=== PATIENT | male | born 1995 | race Caucasian/White ===

== ENCOUNTER 2017-10-29 15:30 | Outpatient (RCR) | payer OTHER ==
[2017-08-24 17:19] VITALS: BP 121/91
[2017-08-24 17:25] LABS: PLATELET COUNT, AUTOMATED 227 K/uL (150-450)
[2017-08-31 09:15] VITALS: BP 141/78
--- NOTE | 2017-09-02 07:38 | SCHUSTER ONCOLOGY NOTE ---
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 HISTORY OF PRESENT ILLNESS The patient returns. Please see his oncology history below. He continues to do quite well. He does notice an irregularity on the right flank, and on examination, I think this is a cyst in his skin. His AFP remains normal and was elevated prior to surgery. He also had an HCG of 22, which continues to be undetectable. I feel that this is most likely a cyst, and we will watch this. It has been present for less than a week. Overall he is doing quite well. His anxiety is improved. No shortness of breath, cough, respiratory symptoms of any kind. No fevers, chills, weight loss. He is looking forward to a spring break trip to [place], [place]. ONCOLOGIC HISTORY Mr. Vee noticed a small swelling and bump in the right testis in July 2016. He was treated with a course of Bactrim without improvement and his doctor promptly sent him for an ultrasound which showed a lesion with three intratesticular masses on the right, the largest measuring 1.7 cm. He had an entire right orchiectomy under the care of Dr. Narayanan of Urology here in [place]. Pathology showed a mixed seminoma, nonseminoma with embryonal yolk sac and seminoma components. Final pathology showed a mixed germ cell tumor consisting of 67% embryonal and 33% seminoma with less than 1% yolk sac component. The tumor in greatest dimension at that time was 1.0 cm in final pathology. Fortunately, it was limited to the testis with no lymphovascular invasion. His presurgery labs showed an AFP of 12, which improved to 4. He had an HCG of 22, which improved to undetectable within two weeks of his surgery. Surgery was performed on September 11, 2016, proven to be stage IA. PET scan was done due to a borderline lymph node right next to his incision site, and this appeared to be reactive from the surgery. His LDH was normal at the time of diagnosis. PAST MEDICAL/SURGICAL HISTORY Testicular cancer, stage IA. 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 [employer], born in [place]. His family currently lives in [place]. He is presented by himself again today. FAMILY HISTORY Noncontributory. REVIEW OF SYSTEMS CONSTITUTIONAL: No fevers, chills or weight change. HEENT: No headache or vision changes. CARDIOVASCULAR: No chest pain, dyspnea on exertion or edema. RESPIRATORY: No shortness of breath, wheeze or cough. GI: No nausea or vomiting. : No dysuria or hematuria, testicular issues. MUSCULOSKELETAL: No weakness or joint pain. PSYCHIATRIC: No anxiety or depression. ENDOCRINE: No heat or cold intolerance. SKIN: The patient has a subcutaneous irregularity, which I believe is most likely a cyst in the dermis. LYMPHATIC: No concerning lumps or bumps. The remainder of 14-point review of systems otherwise negative except as noted above in the HPI. PHYSICAL EXAMINATION VITAL SIGNS: Blood pressure 141/78, pulse 66, respiratory rate 16, temperature 97.1 Fahrenheit, oxygen saturation 98% on room air. Weight 94.6 kg. Pain 0/ 10. Fatigue 0/10. GENERAL: Stable condition, resting comfortably in the chair. SKIN: He has a likely cyst on the right flank, no discoloration over the skin. I believe it is in the dermis based on the exam. With his normal labs, I do not believe this is related to testicular cancer. LYMPHATIC: No appreciable cervical, supraclavicular or axillary adenopathy. Remainder of physical exam otherwise unremarkable. IMPRESSION AND PLAN The patient is a pleasant 21-year-old gentleman with the following: Testicular cancer, nonseminoma with mixed embryonal and seminoma components. Stage IA. Observation was our recommendation, but we are getting labs every three months and scans every six months for the first two years. He had mild elevations of beta HCG and AFP at diagnosis that are now both normal. They continue to be normal. I answered all of his questions today. Billing Return visit, level 3. Total time 20 minutes, counseling time 15 minutes. JOON
[~2017-10-29 15:30] MED LIST changes: +DEXTROSE 5%(*) 100 ML BAG 100 ML IVPB PRN; -IOPAMIDOL 76% 75 ML INFUS BTL 75 ML ONE; +LIDOCAINE/SOD BICARB 8.4% SYR ID PRN; +NS(*) 0.9% 100 ML BAG 100 ML IVPB PRN
[2017-10-29 15:32] VITALS: BP 140/92
[2017-10-29 15:50] LABS: PLATELET COUNT, AUTOMATED 210 K/uL (150-450)
== END 2017-11-22 ==
LOC: SPU 15:30
PROVIDERS: ATTEND Internal Medicine
DX: C62.90 Malignant neoplasm of unspecified testis, unspecified whether descended or undescended (principal)
CPT/HCPCS: 36415; 82040; 82105; 82247; 82310; 82374; 82435; 82565; 82947; 84075; 84132; 84155; 84295; 84450; 84460; 84520; 84702; 85025; 99212

== ENCOUNTER → 2017-10-29 | Outpatient (CLI) | payer OTHER ==
[~2017-10-29] MED LIST: DOCU-416 PO; HYDR-317 PO; IBUP600T22 PO; IOPAMIDOL 76% 75 ML INFUS BTL 75 ML ONE
--- NOTE | 2017-10-29 16:35 | RADIOLOGY IMAGING REPORT ---
FACILITY: [facility] [place] PATIENT NAME: Aries Vee : 1995 MR: [id number] V: [id number] EXAM DATE: ORDERING PHYSICIAN: MIRZA CARMICHAEL TECHNOLOGIST: Location: [facility] Patient: Aries Vee : 1995 Visit/Account:[id number] Date of Sevice: 10/29/2017 CHEST/AB/PELV W/CONTRAST HISTORY: Testicular cancer ADDITIONAL HISTORY: None. TECHNIQUE: Following administration of IV contrast axial images acquired through the chest abdomen a nd pelvis during the portal venous phase. Coronal and sagittal reformatting was also performed. Dose Lowering Technique One of the following dose optimization techniques was utilized in the performance of this exam: Autom ated exposure control; adjustment of the mA and/or kV according to the patient's size; or use of an i terative reconstruction technique. Specific details can be referenced in the facility's radiology C T exam operational policy. CONTRAST: 75 mL Isovue-370 COMPARISON: May 27, 2017 FINDINGS: CHEST: Lungs/Pleura: Negative. Mediastinum/lymph nodes: Negative. Heart/vessels: Negative. Bones/soft tissues: No aggressive appearing bone lesions ABDOMEN AND PELVIS: Hepatobiliary: Negative. Spleen: Spleen is enlarged measuring 15.3 cm in length although appears stable Pancreas: Negative. Adrenals: Negative. Kidneys ureters and bladder : Negative. Genitalia: Postsurgical changes from a prior orchiectomy GI: Negative. Vessels/spaces/nodes: Multiple small lymph nodes in the right groin appears slightly less prominent. The largest now measuring 1.2 x 0.6 cm as opposed to 1.4 x 0.7 cm. Small lymph nodes left groin ar e unchanged Bones/soft tissues: Is a levoconvex scoliosis of the lumbar spine. Schmorl's nodes are noted in the thoracolumbar spine Additional findings: None pertinent. IMPRESSION: No CT evidence of metastatic disease in the chest abdomen or pelvis Spleen is mildly enlarged but unchanged Report Dictated By: Chuyita Astudillo MD at 10/29/2017 4:23 PM Report E-Signed By: Chuyita Astudillo MD at 10/29/2017 4:31 PM WSN:[email or web address]
== END ==
LOC: CT 14:35
PROVIDERS: ATTEND Internal Medicine
DX: R16.1 Splenomegaly, not elsewhere classified (principal)
CPT/HCPCS: 71260; 74177; Q9967

== ENCOUNTER 2018-05-03 08:00 | Outpatient (RCR) | payer OTHER ==
[2018-04-26 09:22] VITALS: BP 143/97
[2018-04-26 09:51] LABS: PLATELET COUNT, AUTOMATED 222 K/uL (150-450)
--- NOTE | 2018-04-26 12:00 | RADIOLOGY IMAGING REPORT ---
FACILITY: [facility] [place] PATIENT NAME: Aries Vee : 1995 MR: [id number] V: [id number] EXAM DATE: ORDERING PHYSICIAN: MIRZA CARMICHAEL TECHNOLOGIST: Location: [facility] [place] Patient: Aries Vee : 1995 Visit/Account:[id number] Date of Sevice: 04/26/2018 CHEST/AB/PELV W/CONTRAST HISTORY: Testicular cancer ADDITIONAL HISTORY: None. TECHNIQUE: Following administration of IV contrast axial images acquired through the chest abdomen a nd pelvis during the portal venous phase. Coronal and sagittal reformatting was also performed.Dose Lowering Technique One of the following dose optimization techniques was utilized in the performance of this exam: Autom ated exposure control; adjustment of the mA and/or kV according to the patient's size; or use of an i terative reconstruction technique. Specific details can be referenced in the facility's radiology C T exam operational policy. CONTRAST: 75 mL Isovue-370 COMPARISON: October 29, 2017 FINDINGS: CHEST: Lungs/Pleura: Negative. Mediastinum/lymph nodes: Negative. Heart/vessels: Negative. Bones/soft tissues: There are Schmorl's nodes in the thoracic spine and upper lumbar spine ABDOMEN AND PELVIS: Hepatobiliary: Negative. Spleen: Spleen is enlarged measuring 15.3 cm in length although appears stable . There is an acces nati splenule Pancreas: Negative. Adrenals: Negative. Kidneys ureters and bladder : Negative. Genitalia: Postsurgical changes from a prior orchiectomy GI: Negative. Vessels/spaces/nodes: No pathologically enlarged lymph nodes are identified Bones/soft tissues: There is a gentle levoconvex scoliosis of the lumbar spine Additional findings: None pertinent. IMPRESSION: Spleen is enlarged although appears stable No evidence of metastatic disease at this time Report Dictated By: Chuyita Astudillo MD at 04/26/2018 11:36 AM Report E-Signed By: Chuyita Astudillo MD at 04/26/2018 11:55 AM WSN:[id number]
[~2018-05-03 08:00] MED LIST changes: -DEXTROSE 5%(*) 100 ML BAG 100 ML IVPB PRN; +IOPAMIDOL 76% 75 ML INFUS BTL 75 ML ONE; -LIDOCAINE/SOD BICARB 8.4% SYR ID PRN; -NS(*) 0.9% 100 ML BAG 100 ML IVPB PRN
[2018-05-03 08:07] VITALS: BP 142/82
--- NOTE | 2018-05-03 14:38 | SCHUSTER ONCOLOGY NOTE ---
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 HISTORY OF PRESENT ILLNESS Sukhjinder returns. Please see his oncology history below for more details. He continues to do exceptionally well. He is finishing his senior year in [employer] and plans to move back to [place] next year. His AFT and HCG remain normal. He had an HCG of 22 at diagnosis, which continues to be low now. No new issues. No concerning lumps or bumps. No sexual dysfunction. No shortness of breath, cough, lumps or bumps, weight loss or other concerning symptoms. ONCOLOGIC HISTORY Mr. Vee noticed a small swelling and bump in the right testis in July 2016. He was treated with a course of Bactrim without improvement and his doctor promptly sent him for an ultrasound which showed a lesion with three intratesticular masses on the right, the largest measuring 1.7 cm. He had an entire right orchiectomy under the care of Dr. Narayanan of Urology here in [place]. Pathology showed a mixed seminoma, nonseminoma with embryonal yolk sac and seminoma components. Final pathology showed a mixed germ cell tumor consisting of 67% embryonal and 33% seminoma with less than 1% yolk sac component. The tumor in greatest dimension at that time was 1.0 cm in final pathology. Fortunately, it was limited to the testis with no lymphovascular invasion. His presurgery labs showed an AFP of 12, which improved to 4. He had an HCG of 22, which improved to undetectable within two weeks of his surgery. Surgery was performed on September 11, 2016, proven to be stage IA. PET scan was done due to a borderline lymph node right next to his incision site, and this appeared to be reactive from the surgery. His LDH was normal at the time of diagnosis. PAST MEDICAL/SURGICAL HISTORY Testicular cancer, stage IA. SOCIAL HISTORY The patient is a sophomore here at the [employer] [facility], born in [place]. His family currently lives in [place]. He is presented by himself again today. FAMILY HISTORY Noncontributory. REVIEW OF SYSTEMS CONSTITUTIONAL: No fevers, chills or weight change. HEENT: No headache or vision changes. CARDIOVASCULAR: No chest pain, dyspnea on exertion or edema. RESPIRATORY: No shortness of breath, wheeze or cough. GI: No nausea or vomiting. : No dysuria or hematuria, testicular concerns. MUSCULOSKELETAL: No weakness or joint pain. PSYCHIATRIC: No anxiety or depression. ENDOCRINE: No heat or cold intolerance. SKIN: No issues. LYMPHATIC: No concerning lumps or bumps. The remainder of 14-point review of systems otherwise negative. PHYSICAL EXAMINATION VITAL SIGNS: Blood pressure 142/82, pulse 74, respiratory rate 16, temperature 97.1 Fahrenheit, oxygen saturation 96% on room air. Weight 96.8 kg. Pain 0/10. Fatigue 0/10. GENERAL: Stable condition, resting comfortably in the chair. HEENT: Normocephalic/atraumatic. LYMPHATIC: No appreciable cervical, supraclavicular or axillary adenopathy. CARDIOVASCULAR: Regular rate and rhythm. No murmur, rub or gallop. LUNGS: Clear. ABDOMEN: Soft, nontender. No organomegaly, tenderness or masses. : Testicular exam deferred today. The remainder of physical exam otherwise unremarkable. IMPRESSION/REPORT/PLAN Sukhjinder is a very pleasant 21-year-old gentleman with the following: Testicular cancer - nonseminoma with mixed embryonal and seminoma components, stage IA. Observation was recommended and we are getting labs every six months with scans every six months at this time. In the spring of 2018, we can transition to annual exams with scans for three years. I answered all of his questions today. He is doing very well. He may move back to [place] after graduation in the spring. Billing Return visit, level 3. Total time 20 minutes, counseling time 15 minutes. JOON
[2018-05-06] MEDS ORDERED: DEXTROSE 5%(*) 100 ML BAG 100 ML IVPB PRN (15:25)
[2018-05-06] MEDS ORDERED: NS(*) 0.9% 100 ML BAG 100 ML IVPB PRN (15:25)
[2018-05-06] MEDS ORDERED: LIDOCAINE/SOD BICARB 8.4% SYR ID PRN (15:25)
== END 2018-05-26 11:54 | disposition home or self-care (01) ==
LOC: ONC 08:00
PROVIDERS: ATTEND Internal Medicine
DX: C62.90 Malignant neoplasm of unspecified testis, unspecified whether descended or undescended (principal)
CPT/HCPCS: 71260; 74177; 82105; 84702; 85025; 99212; Q9967; 82040; 82247; 82310; 82374; 82435; 82565; 82947; 84075; 84132; 84155; 84295; 84450; 84460; 84520

== ENCOUNTER 2018-08-11 10:00 | Outpatient (RCR) | payer OTHER ==
[2018-08-05 14:05] VITALS: BP 161/98
[2018-08-05 14:20] LABS: PLATELET COUNT, AUTOMATED 207 K/uL (150-450)
[~2018-08-11 10:00] MED LIST changes: -IOPAMIDOL 76% 75 ML INFUS BTL 75 ML ONE
[2018-08-11 10:33] VITALS: BP 153/87
[2018-08-11] MEDS ORDERED: DEXTROSE 5%(*) 100 ML BAG 100 ML IVPB PRN (10:40)
[2018-08-11] MEDS ORDERED: LIDOCAINE/SOD BICARB 8.4% SYR ID PRN (10:40)
[2018-08-11] MEDS ORDERED: NS(*) 0.9% 100 ML BAG 100 ML IVPB PRN (10:40)
--- NOTE | 2018-08-11 16:23 | RADIOLOGY IMAGING REPORT ---
FACILITY: [facility] [place] PATIENT NAME: Aries Vee : 1995 MR: [id number] V: [id number] EXAM DATE: ORDERING PHYSICIAN: MIRZA CARMICHAEL TECHNOLOGIST: Location: [facility] Patient: Aries Vee : 1995 Visit/Account:[id number] Date of Sevice: 08/11/2018 CT CHEST ABDOMEN PELVIS W & W/O HISTORY: Restaging testicular cancer TECHNIQUE: CT chest, abdomen and pelvis with and without intravenous contrast. Contiguous helical im ages was performed from the lung apices to the symphysis pubis. One of the following dose optimization techniques was utilized in the performance of this exam: Autom ated exposure control; adjustment of the mA and/or kV according to the patient's size; or use of an i terative reconstruction technique. Specific details can be referenced in the facility's radiology C T exam operational policy. CONTRAST: 75 cc of Isovue-300 COMPARISON: CT scan 04/26/2018 as well as multiple priors FINDINGS: CHEST: Heart/vessels: Negative. Mediastinum: Negative. Lymph nodes: Negative. Lungs/pleura: Negative. Bones/soft tissues: Negative. ABDOMEN/PELVIS: Hepatobiliary: Negative. Spleen: Mild enlarged measures 14.7 cm in length and is stable from prior exams. Adrenals: Negative. Kidneys/: Postoperative changes are noted from right orchiectomy. No definitive recurrent or metas tatic disease. Pancreas: Negative. GI: Negative. Vessels/spaces/nodes: Shotty retroperitoneal lymph nodes are stable. No evidence for metastatic retr ocardial adenopathy. Small mesenteric lymph nodes are stable. Bones/soft tissues: Small subcutaneous nodule along the right flank image 145 is stable. Some infilt ration of subcutaneous tissues along the ventral abdominal wall are also noted likely inflammatory. 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 IMPRESSION: 1. Stable postoperative changes are noted from right orchiectomy. No definite recurrent or metastati c disease. Report Dictated By: Roman Davis MD at 08/11/2018 4:08 PM Report E-Signed By: Roman Davis MD at 08/11/2018 4:19 PM WSN:[id number]
--- NOTE | 2018-08-17 23:27 | ONCOLOGY FOLLOW UP NOTE ---
EVENT DATE: August 17, 2018 CHIEF COMPLAINT/REASON FOR VISIT Mr. Vee is a very pleasant 22-year-old gentleman and senior at the [employer] with a stage I testicular cancer (non-seminoma with mixed embryonal and seminoma components). HISTORY OF PRESENT ILLNESS Sukhjinder shane. Please see Oncology History below for more details. He continues to do exceptionally well. 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 His AFP and hCG remain normal. He had initial hCG of 22, which continues to be normal now. He noted a suprapubic nodule of approximately 1 cm in size that appears to be in the lower layers of the skin approximately two weeks ago. This led to moving up his imaging and labs. Unfortunately, there is no sign of relapse at this time. This lesion has been unchanged in the past few weeks, and we are currently suspecting that it is a cyst, and we will be watching it clinically as it is easily palpable. We discussed consideration for biopsy, but they did not feel that this was warranted at this time, and I agree with this. ONCOLOGIC HISTORY Mr. Vee noticed a small swelling and bump in the right testis in July 2016. He was treated with a course of Bactrim without improvement, and his doctor promptly sent him for an ultrasound which showed a lesion with three intratesticular masses on the right, the largest measuring 1.7 cm. He had an entire right orchiectomy under the care of Dr. Narayanan of Urology here in [place]. Pathology showed a mixed seminoma, nonseminoma with embryonal yolk sac and seminoma components. Final pathology showed a mixed germ cell tumor consisting of 67% embryonal and 33% seminoma with less than 1% yolk sac component. The tumor in greatest dimension at that time was 1.0 cm in final pathology. Fortunately, it was limited to the testis with no lymphovascular invasion. His presurgery labs showed an AFP of 12, which improved to 4. He had an hCG of 22, which improved to undetectable within two weeks of his surgery. Surgery was performed on September 11, 2016, proven to be stage IA. PET scan was done due to a borderline lymph node right next to his incision site, and this appeared to be reactive from the surgery. His LDH was normal at the time of diagnosis. PAST MEDICAL/SURGICAL HISTORY Testicular cancer, stage IA. 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 His family currently lives in [place]. He is presented by himself again today. FAMILY HISTORY Noncontributory. REVIEW OF SYSTEMS CONSTITUTIONAL: No fevers, chills, or weight change. HEENT: No headache or vision changes. CARDIOVASCULAR: No chest pain, dyspnea on exertion, or edema. RESPIRATORY: No shortness of breath, wheeze, or cough. GASTROINTESTINAL: No nausea or vomiting. GENITOURINARY: No dysuria or hematuria, testicular concerns. MUSCULOSKELETAL: No weakness or joint pain. PSYCHIATRIC: No anxiety or depression. ENDOCRINE: No heat or cold intolerance. SKIN: No issues. LYMPHATIC: No concerning lumps or bumps. The remainder of 14-point review of systems otherwise negative. PHYSICAL EXAMINATION VITAL SIGNS: Blood pressure 148/92, pulse 62, respiratory rate 16, temperature 97.0 Fahrenheit, oxygen saturation 98% on room air. Weight 100.5 kg, which is an increase of approximately 10 pounds in the last few months. Pain 0/10. Fatigue 0/10. GENERAL: Stable condition, resting comfortably in the chair. HEENT: Normocephalic, atraumatic. SKIN/LYMPHATIC: The patient has a 1 cm palpable suprapubic nodule that appears to be in the dermis of the skin. This is probably a cyst, and we will watch it closely. It is unchanged in two weeks. There is no erythema overlying this. No other concerns on exam today. GENITOURINARY: Exam deferred today. Remainder of physical exam otherwise unremarkable. DIAGNOSTIC DATA Reviewed his labs and scans in detail. IMPRESSION/REPORT/PLAN Mr. Vee is a pleasant 22-year-old gentleman with the following: Testicular cancer, stage IA - nonseminoma with mixed embryonal and seminoma components. Observation was recommended, and we are getting labs every six months with scans every six months at this time. In the spring, we can then transition to annual exams with scans annually for three years. I would like to see him back before he finishes school to recheck this lesion, and then we can begin annual followups. I would like him to establish if he moves to another location with an oncologist within six months, however. I answered all of his questions today. BILLING Return visit level 4. Total time 30 minutes, counseling time 20. MTDD
== END 2018-08-16 12:17 | disposition home or self-care (01) ==
LOC: SPU 10:00
PROVIDERS: ATTEND Internal Medicine
DX: C62.90 Malignant neoplasm of unspecified testis, unspecified whether descended or undescended (principal)
CPT/HCPCS: 36415; 71270; 74178; 82105; 83615; 84702; 85025; Q9967; 82040; 82247; 82310; 82374; 82435; 82565; 82947; 84075; 84132; 84155; 84295; 84450; 84460; 84520

== ENCOUNTER 2018-10-04 14:37 | Outpatient (RCR) | payer OTHER ==
[2018-08-17 14:04] VITALS: BP 148/92
[2018-10-04 14:40] VITALS: BP 150/90
[2018-10-04 14:56] LABS: PLATELET COUNT, AUTOMATED 219 K/uL (150-450)
== END 2018-11-14 ==
LOC: SPU 14:37
PROVIDERS: ATTEND Internal Medicine
DX: C62.90 Malignant neoplasm of unspecified testis, unspecified whether descended or undescended (principal)
CPT/HCPCS: 36415; 82040; 82105; 82247; 82310; 82374; 82435; 82565; 82947; 83615; 84075; 84132; 84155; 84295; 84450; 84460; 84520; 84702; 85025; 99212